=== PATIENT | female | born 1955 | race Caucasian/White ===

== ENCOUNTER → 2022-10-18 | Outpatient (CLI) | payer MEDICARE, OTHER | LOC: COL.RAD 12:30 | DX: M47.814 Spondylosis without myelopathy or radiculopathy, thoracic region (principal); G35 Multiple sclerosis; H81.02 Meniere's disease, left ear; G25.0 Essential tremor; M54.17 Radiculopathy, lumbosacral region; G56.01 Carpal tunnel syndrome, right upper limb | CPT/HCPCS: A9575 ==

== ENCOUNTER 2024-03-12 08:51 | Outpatient (RCR) | payer MEDICARE, OTHER ==
[~2024-03-12 08:51] MED LIST: ALLEGRA 60MG TA60 MG PO; CURCUPLEX-95500 MG PO; DIME240E PO; FLAXSEED OIL1000 MG; LEXAPRO20 MG PO; MASON NATURAL2000 IU PO; MULTIPLE VITAMI1 CAP PO; NAPROSYN 2250 MG/TAB PO; REQUIP XL8 MG PO; ROBAXIN 75750 MG/TAB PO; [UNRECOGNIZED DRUG - OTHER]
== END 2024-04-07 13:40 | disposition home or self-care (01) ==
LOC: MKS.ESL.PT 08:51
DX: G56.21 Lesion of ulnar nerve, right upper limb (principal); G25.0 Essential tremor; R20.0 Anesthesia of skin; R20.2 Paresthesia of skin; R26.9 Unspecified abnormalities of gait and mobility; R13.10 Dysphagia, unspecified